=== PATIENT | male | born 1955 | race Caucasian/White ===

== ENCOUNTER 2018-08-14 09:45 | Inpatient (IN) | payer OTHER, MEDICAID ==
[2018-08-14] VITALS (15 sets, daily range): BP systolic 106–133; BP diastolic 69–91
[~2018-08-14] VITALS: Ht 160 cm; Wt 84.4 kg
[~2018-08-14 09:45] MED LIST: COR3 PO; LIBRIUM PO
[2018-08-14] MEDS ORDERED: LEVOFLOXACIN 750MG PREMIX 150 ML IV ONE (10:00)
[2018-08-14 10:26] LABS: BG BASE EXCESS -10.7 mmol/L (-2.0-2.0); BG CARBOXYHEMOGLOBIN 0.4 % (0.5-1.5); BG DEOXYHEMOGLOBIN 1.2 % (0.0-5.0); BG FRACTION INSPIRED OXYGEN 100; BG HCO3 ACT 15.6 mmol/L (22.0-26.0); BG METHEMOGLOBIN 0.4 % (0.0-1.5); BG OXYGEN SATURATION 98.8 % (92.0-98.5); BG PCO2 36.3 mmHg (35.0-45.0); BG PH 7.252 (7.350-7.450); BG PO2 153.5 mmHg (75.0-100.0); BG SAMPLE SITE RIGHT RADIAL; BG TIDAL VOLUME(mL) 500 mL; BG TOTAL HEMOGLOBIN 9.7 g/dL (12.0-18.0); BG VENT MODE VENT - A/C; BG VENT RATE 18 set
[2018-08-14 10:38] LABS: BASOPHILS % 0.8 % (0.0-2.0); EOSINOPHILS % 0.3 % (0.0-5.0); HEMATOCRIT. 36.5 % (42.0-52.0); HEMOGLOBIN. 10.6 g/dL (14.0-18.0); LYMPHOCYTES % 11.5 % (20.0-50.0); MEAN CORPUSCULAR HEMOGLOBIN 29.8 pg (28.0-32.0); MEAN CORPUSCULAR VOLUME 102.8 fL (80.0-94.0); MEAN PLATELET VOLUME 9.2 fl (7.4-10.4); MONOCYTES % 5.8 % (2.0-8.0); NEUTROPHILS % 81.6 % (40.0-76.0); PLATELET 305 x1000/uL (130-400); RED BLOOD CELL COUNT 3.55 mill/uL (4.7-6.1); RED CELL DISTRIBUTION WIDTH 23.8 % (11.6-14.6)
[2018-08-14] MEDS ORDERED: FUROSEMIDE 100MG/10ML VIAL IVP ONE (10:45)
[2018-08-14 10:47] LABS: CHLORIDE 114 mEq/L (98-107); INR 1.4
[2018-08-14 11:00] LABS: PLATELET ESTIMATE NORMAL
[2018-08-14] MEDS ORDERED: VANCOMYCIN 1 G PREMIX 200 ML IV ONE (11:00)
[2018-08-14] MEDS ORDERED: PIPERACILLIN/TAZ 3.375G PREMIX 50 ML IV ONE (11:00)
[2018-08-14] MEDS ORDERED: CALCIUM CHLORIDE 1GM/10ML SYR IV ONE (11:15)
[2018-08-14] MEDS ORDERED: ALBUTEROL (0.083%) 2.5MG/3ML NEB HHN ONE (11:15)
[2018-08-14] MEDS ORDERED: SODIUM BICARBONATE 8.4% 1 MEQ/ML 50ML SYR IV ONE (11:15)
[2018-08-14] MEDS ORDERED: INSULIN REGULAR (HUMULIN R) 300UNITS/3ML IV ONE (11:15)
[2018-08-14] MEDS ORDERED: DEXTROSE 50% WATER 50ML SYRINGE IV ONE (11:15)
[2018-08-14 12:59] LABS: CLARITY URINE CLOUDY (CLEAR); COLOR URINE YELLOW (YELLOW); KETONES URINE NEGATIVE (NEGATIVE); LEUKOCYTE ESTERASE URINE NEGATIVE (NEGATIVE); NITRITE URINE NEGATIVE (NEGATIVE); OCCULT BLOOD URINE TRACE (NEGATIVE); PH URINE 6.5 (4.5-8.0); PROTEIN URINE NEGATIVE (NEGATIVE); SPECIFIC GRAVITY URINE 1.007 (1.005-1.030); UROBILINOGEN URINE 0.2 E.U./dL (0.2-1.0)
[2018-08-14] MEDS ORDERED: ALBUTEROL (0.5%) 2.5MG/0.5ML NEB HHN ONE (14:15)
[2018-08-14] MEDS ORDERED: ASPIRIN 600MG SUPP PR ONE (14:30)
[2018-08-14] MEDS ORDERED: IPRATROPIUM/ALBUTEROL 0.5-3(2.5)MG/3ML NEB HHN PRN (15:00)
[2018-08-14] MEDS ORDERED: SODIUM BICARBONATE 8.4% 1 MEQ/ML 50ML SYR IV NR (16:16)
[2018-08-14] MEDS: CEFEPIME 1,000 MG in DEXTROSE 5% WATER 50 ML IV SCH (18:06)
[2018-08-14] MEDS ORDERED: LORAZEPAM 2MG/ML CPJ IM PRN (18:30)
[2018-08-14] MEDS: METRONIDAZOLE 500 MG PREMIX 100 ML IV SCH (20:44)
[2018-08-14] MEDS: MORPHINE SULFATE 4 MG/ML CPJ (NOT FOR IM USE) IV PRN (20:45)
[2018-08-14] MEDS: IPRATROPIUM/ALBUTEROL 0.5-3(2.5)MG/3ML NEB HHN SCH (23:40)
[2018-08-14] MEDS: ACETYLCYSTEINE 100MG/ML 10% VIAL 4ML INH SCH (23:40)
[2018-08-15] VITALS (36 sets, daily range): BP systolic 108–197; BP diastolic 28–106
[2018-08-15] MEDS: IPRATROPIUM/ALBUTEROL 0.5-3(2.5)MG/3ML NEB HHN SCH ×6 (03:52→23:32)
[2018-08-15] MEDS: CEFEPIME 1,000 MG in DEXTROSE 5% WATER 50 ML IV SCH ×2 (05:22→20:07)
[2018-08-15] MEDS: METRONIDAZOLE 500 MG PREMIX 100 ML IV SCH ×3 (05:22→20:27)
[2018-08-15 08:10] LABS: BG BASE EXCESS -4.5 mmol/L (-2.0-2.0); BG CARBOXYHEMOGLOBIN 0.3 % (0.5-1.5); BG DEOXYHEMOGLOBIN 1.6 % (0.0-5.0); BG FRACTION INSPIRED OXYGEN 40; BG METHEMOGLOBIN 0.2 % (0.0-1.5); BG OXYGEN SATURATION 98.4 % (92.0-98.5); BG OXYHEMOGLOBIN 97.9 % (94.0-97.0); BG PH 7.476 (7.350-7.450); BG PO2 134.5 mmHg (75.0-100.0); BG SAMPLE SITE RIGHT RADIAL; BG TIDAL VOLUME(mL) 500 mL; BG TOTAL HEMOGLOBIN 9.2 g/dL (12.0-18.0); BG VENT MODE VENT - A/C; BG VENT RATE 18 set
[2018-08-15] MEDS: MORPHINE SULFATE 4 MG/ML CPJ (NOT FOR IM USE) IV PRN ×3 (08:38→20:06)
[2018-08-15] MEDS: ACETYLCYSTEINE 100MG/ML 10% VIAL 4ML INH SCH (08:52)
[2018-08-15] MEDS: LORAZEPAM 2MG/ML CPJ IV PRN ×2 (10:05→23:18)
[2018-08-15] MEDS: FUROSEMIDE 40MG/4ML VIAL IVP SCH ×2 (11:20→18:05)
[2018-08-15] MEDS: PANTOPRAZOLE SODIUM 40 MG/VIAL IV SCH (11:21)
[2018-08-15] MEDS ORDERED: QUETIAPINE FUMARATE 25MG TABLET GT SCH (21:00)
[2018-08-16] VITALS (38 sets, daily range): BP systolic 95–149; BP diastolic 26–117
[2018-08-16] MEDS: MORPHINE SULFATE 4 MG/ML CPJ (NOT FOR IM USE) IV PRN ×2 (01:52→12:56)
[2018-08-16] MEDS: IPRATROPIUM/ALBUTEROL 0.5-3(2.5)MG/3ML NEB HHN SCH ×6 (03:54→20:34)
[2018-08-16] MEDS: METRONIDAZOLE 500 MG PREMIX 100 ML IV SCH ×3 (05:05→20:01)
[2018-08-16] MEDS: LORAZEPAM 2MG/ML CPJ IV PRN ×3 (05:05→20:01)
[2018-08-16 05:55] LABS: HEMATOCRIT. 26.8 % (42.0-52.0); HEMOGLOBIN. 8.4 g/dL (14.0-18.0); MEAN CORPUSCULAR HEMOGLOBIN 30.2 pg (28.0-32.0); MEAN CORPUSCULAR VOLUME 96.7 fL (80.0-94.0); PLATELET 307 x1000/uL (130-400); RED BLOOD CELL COUNT 2.77 mill/uL (4.7-6.1); RED CELL DISTRIBUTION WIDTH 23.6 % (11.6-14.6)
[2018-08-16 06:03] LABS: CHLORIDE 112 mEq/L (98-107)
[2018-08-16 06:05] LABS: PHOSPHORUS 3.1 mg/dL (2.5-4.9)
[2018-08-16 09:16] LABS: BG BASE EXCESS -2.7 mmol/L (-2.0-2.0); BG CARBOXYHEMOGLOBIN 0.4 % (0.5-1.5); BG DEOXYHEMOGLOBIN 2.3 % (0.0-5.0); BG FRACTION INSPIRED OXYGEN 40; BG HCO3 ACT 20.6 mmol/L (22.0-26.0); BG METHEMOGLOBIN 0.4 % (0.0-1.5); BG OXYGEN SATURATION 97.7 % (92.0-98.5); BG OXYHEMOGLOBIN 96.9 % (94.0-97.0); BG PCO2 30.5 mmHg (35.0-45.0); BG PH 7.448 (7.350-7.450); BG PO2 104.1 mmHg (75.0-100.0); BG SAMPLE SITE RIGHT RADIAL; BG TIDAL VOLUME(mL) 500 mL; BG VENT MODE VENT - A/C; BG VENT RATE 18 set
[2018-08-16] MEDS: CEFEPIME 1,000 MG in DEXTROSE 5% WATER 50 ML IV SCH ×2 (09:26→20:02)
[2018-08-16] MEDS: PANTOPRAZOLE SODIUM 40 MG/VIAL IV SCH (09:26)
[2018-08-16] MEDS: FUROSEMIDE 40MG/4ML VIAL IVP SCH ×2 (09:27→17:24)
[2018-08-16 10:48] LABS: PLATELET ESTIMATE NORMAL
[2018-08-16] MEDS: RISPERIDONE 1MG TABLET NG SCH ×2 (11:22→20:01)
[2018-08-16] MEDS: ENOXAPARIN 40MG/0.4ML SYR SUBCUT SCH (14:30)
[2018-08-16 15:22] LABS: BG BASE EXCESS -5.4 mmol/L (-2.0-2.0); BG CARBOXYHEMOGLOBIN 0.4 % (0.5-1.5); BG FRACTION INSPIRED OXYGEN 35; BG HCO3 ACT 17.4 mmol/L (22.0-26.0); BG METHEMOGLOBIN 0.3 % (0.0-1.5); BG OXYHEMOGLOBIN 96.3 % (94.0-97.0); BG PCO2 25.3 mmHg (35.0-45.0); BG PH 7.456 (7.350-7.450); BG PO2 94.7 mmHg (75.0-100.0); BG SAMPLE SITE RIGHT RADIAL; BG TIDAL VOLUME(mL) 500 mL; BG TOTAL HEMOGLOBIN 9.5 g/dL (12.0-18.0); BG VENT MODE VENT - A/C; BG VENT RATE 16 set
[2018-08-16] MEDS: DIGOXIN 125MCG TABLET PO SCH (17:36)
[2018-08-17] VITALS (44 sets, daily range): BP systolic 86–157; BP diastolic 48–109
[2018-08-17] MEDS: IPRATROPIUM/ALBUTEROL 0.5-3(2.5)MG/3ML NEB HHN SCH ×5 (00:22→20:33)
[2018-08-17] MEDS: MORPHINE SULFATE 4 MG/ML CPJ (NOT FOR IM USE) IV PRN (03:31)
[2018-08-17] MEDS: METRONIDAZOLE 500 MG PREMIX 100 ML IV SCH (06:19)
[2018-08-17 06:30] LABS: BASOPHILS % 1.2 % (0.0-2.0); EOSINOPHILS % 1.1 % (0.0-5.0); HEMATOCRIT. 26.5 % (42.0-52.0); HEMOGLOBIN. 8.5 g/dL (14.0-18.0); LYMPHOCYTES % 7.3 % (20.0-50.0); MEAN CORPUSCULAR HEMOGLOBIN 30.5 pg (28.0-32.0); MEAN CORPUSCULAR VOLUME 95.6 fL (80.0-94.0); MEAN PLATELET VOLUME 8.8 fl (7.4-10.4); NEUTROPHILS % 82.4 % (40.0-76.0); PLATELET 342 x1000/uL (130-400); RED BLOOD CELL COUNT 2.77 mill/uL (4.7-6.1); RED CELL DISTRIBUTION WIDTH 22.9 % (11.6-14.6)
[2018-08-17 06:43] LABS: CHLORIDE 110 mEq/L (98-107)
[2018-08-17 06:45] LABS: PHOSPHORUS 2.8 mg/dL (2.5-4.9)
[2018-08-17] MEDS ORDERED: VANCOMYCIN 1500MG in DEXTROSE 5% WATER 250ML IV SCH (09:00)
[2018-08-17] MEDS ORDERED: PIPERACILLIN/TAZ 2.25G PREMIX 50 ML IV SCH (09:00)
[2018-08-17] MEDS: RISPERIDONE 1MG TABLET NG SCH (09:10)
[2018-08-17] MEDS: FUROSEMIDE 40MG/4ML VIAL IVP SCH ×2 (09:10→18:52)
[2018-08-17] MEDS: PANTOPRAZOLE SODIUM 40 MG/VIAL IV SCH (09:10)
[2018-08-17] MEDS: ENOXAPARIN 40MG/0.4ML SYR SUBCUT SCH (09:10)
[2018-08-17] MEDS ORDERED: HALOPERIDOL LACTATE 5MG/ML VIAL IM PRN (12:45)
[2018-08-17] MEDS: PIPERACILLIN/TAZ 3.375G PREMIX 50 ML IV SCH ×2 (18:52→20:49)
[2018-08-17] MEDS: DIGOXIN 125MCG TABLET PO SCH (18:52)
[2018-08-17] MEDS: VANCOMYCIN 1 G PREMIX 200 ML IV SCH (20:49)
[2018-08-17] MEDS: RISPERIDONE 1MG TABLET PO SCH (20:50)
[2018-08-18] VITALS (15 sets, daily range): BP systolic 111–160; BP diastolic 42–100
[2018-08-18] MEDS: LORAZEPAM 2MG/ML CPJ IV PRN ×4 (00:36→18:48)
[2018-08-18] MEDS: IPRATROPIUM/ALBUTEROL 0.5-3(2.5)MG/3ML NEB HHN SCH ×6 (00:37→20:08)
[2018-08-18] MEDS: MORPHINE SULFATE 4 MG/ML CPJ (NOT FOR IM USE) IV PRN ×2 (00:40→14:33)
[2018-08-18] MEDS: PIPERACILLIN/TAZ 3.375G PREMIX 50 ML IV SCH ×4 (03:26→22:02)
[2018-08-18] MEDS: PANTOPRAZOLE SODIUM 40 MG/VIAL IV SCH (08:37)
[2018-08-18] MEDS: FUROSEMIDE 40MG/4ML VIAL IVP SCH ×2 (08:37→16:44)
[2018-08-18] MEDS: ENOXAPARIN 40MG/0.4ML SYR SUBCUT SCH (08:38)
[2018-08-18] MEDS: RISPERIDONE 1MG TABLET PO SCH ×2 (08:38→21:40)
[2018-08-18] MEDS: VANCOMYCIN 1 G PREMIX 200 ML IV SCH ×2 (08:45→21:40)
[2018-08-18 09:13] LABS: BASOPHILS % 1.6 % (0.0-2.0); EOSINOPHILS % 2.4 % (0.0-5.0); HEMATOCRIT. 26.2 % (42.0-52.0); HEMOGLOBIN. 8.4 g/dL (14.0-18.0); LYMPHOCYTES % 7.4 % (20.0-50.0); MEAN CORPUSCULAR HEMOGLOBIN 30.3 pg (28.0-32.0); MEAN CORPUSCULAR VOLUME 94.2 fL (80.0-94.0); MEAN PLATELET VOLUME 9.2 fl (7.4-10.4); MONOCYTES % 9.1 % (2.0-8.0); NEUTROPHILS % 79.5 % (40.0-76.0); PLATELET 325 x1000/uL (130-400); RED BLOOD CELL COUNT 2.78 mill/uL (4.7-6.1); RED CELL DISTRIBUTION WIDTH 23.1 % (11.6-14.6)
[2018-08-18 09:47] LABS: CHLORIDE 110 mEq/L (98-107)
[2018-08-18 10:01] LABS: PHOSPHORUS 2.2 mg/dL (2.5-4.9)
[2018-08-18 16:16] LABS: BG BASE EXCESS 3.8 mmol/L (-2.0-2.0); BG CARBOXYHEMOGLOBIN 0.1 % (0.5-1.5); BG DEOXYHEMOGLOBIN 1.9 % (0.0-5.0); BG FRACTION INSPIRED OXYGEN 35; BG HCO3 ACT 26.6 mmol/L (22.0-26.0); BG METHEMOGLOBIN 0.4 % (0.0-1.5); BG OXYGEN SATURATION 98.1 % (92.0-98.5); BG OXYHEMOGLOBIN 97.6 % (94.0-97.0); BG PCO2 33.3 mmHg (35.0-45.0); BG PH 7.521 (7.350-7.450); BG PO2 116.3 mmHg (75.0-100.0); BG SAMPLE SITE RIGHT RADIAL; BG TIDAL VOLUME(mL) 500 mL; BG TOTAL HEMOGLOBIN 9.3 g/dL (12.0-18.0); BG VENT MODE VENT - A/C; BG VENT RATE 16 set
[2018-08-18] MEDS: DIGOXIN 125MCG TABLET PO SCH (17:26)
[2018-08-18] MEDS ORDERED: ACETAMINOPHEN 650MG/20.3ML UDC PO PRN (19:15)
[2018-08-18] MEDS ORDERED: ACETAMINOPHEN 650MG/20.3ML UDC GT PRN (19:30)
[2018-08-19] VITALS (12 sets, daily range): BP systolic 103–121; BP diastolic 61–78
[2018-08-19] MEDS: IPRATROPIUM/ALBUTEROL 0.5-3(2.5)MG/3ML NEB HHN SCH ×6 (00:19→22:05)
[2018-08-19] MEDS: MORPHINE SULFATE 4 MG/ML CPJ (NOT FOR IM USE) IV PRN (02:53)
[2018-08-19] MEDS: PIPERACILLIN/TAZ 3.375G PREMIX 50 ML IV SCH ×4 (04:00→21:58)
[2018-08-19 06:33] LABS: CHLORIDE 109 mEq/L (98-107)
[2018-08-19 06:39] LABS: PHOSPHORUS 1.9 mg/dL (2.5-4.9)
[2018-08-19 07:59] LABS: BASOPHILS % 1.4 % (0.0-2.0); EOSINOPHILS % 5.3 % (0.0-5.0); HEMATOCRIT. 24.8 % (42.0-52.0); HEMOGLOBIN. 8.1 g/dL (14.0-18.0); LYMPHOCYTES % 7.2 % (20.0-50.0); MEAN CORPUSCULAR HEMOGLOBIN 30.6 pg (28.0-32.0); MEAN CORPUSCULAR VOLUME 93.7 fL (80.0-94.0); MEAN PLATELET VOLUME 8.7 fl (7.4-10.4); MONOCYTES % 9.2 % (2.0-8.0); NEUTROPHILS % 76.9 % (40.0-76.0); PLATELET 310 x1000/uL (130-400); RED BLOOD CELL COUNT 2.65 mill/uL (4.7-6.1); RED CELL DISTRIBUTION WIDTH 23.5 % (11.6-14.6)
[2018-08-19] MEDS: VANCOMYCIN 1 G PREMIX 200 ML IV SCH (08:04)
[2018-08-19] MEDS ORDERED: DEXT 5% WATER 500 ML IV ONE (08:45)
[2018-08-19] MEDS: PANTOPRAZOLE SODIUM 40 MG/VIAL IV SCH (08:49)
[2018-08-19] MEDS: ENOXAPARIN 40MG/0.4ML SYR SUBCUT SCH (08:50)
[2018-08-19] MEDS: RISPERIDONE 1MG TABLET PO SCH ×2 (09:00→21:58)
[2018-08-19] MEDS: FUROSEMIDE 40MG/4ML VIAL IVP SCH ×2 (09:34→16:03)
[2018-08-19] MEDS ORDERED: POTASSIUM PHOS,M-BASIC-D-BASIC 20 MMOL in DEXT 5% WATER 243.3333 ML IV SCH (10:00)
[2018-08-19] MEDS ORDERED: LACTULOSE 20G/30ML UDC PO PRN (13:00)
[2018-08-19] MEDS ORDERED: BISACODYL 5MG TABLET PO PRN (13:00)
[2018-08-19] MEDS ORDERED: FUROSEMIDE 40MG/4ML VIAL IVP NR (13:00)
[2018-08-19] MEDS: LORAZEPAM 2MG/ML CPJ IV PRN ×2 (14:32→21:57)
[2018-08-19] MEDS: DOCUSATE SODIUM 100MG CAPSULE NG SCH (18:13)
[2018-08-19] MEDS: DIGOXIN 125MCG TABLET PO SCH (18:14)
[2018-08-19] MEDS ORDERED: MORPHINE SULFATE 4 MG/ML CPJ (NOT FOR IM USE) IV PRN (18:30)
[2018-08-20] VITALS (14 sets, daily range): BP systolic 105–122; BP diastolic 56–89
[2018-08-20] MEDS: IPRATROPIUM/ALBUTEROL 0.5-3(2.5)MG/3ML NEB HHN SCH ×4 (00:22→20:55)
[2018-08-20] MEDS: LORAZEPAM 2MG/ML CPJ IV PRN (02:08)
[2018-08-20] MEDS: PIPERACILLIN/TAZ 3.375G PREMIX 50 ML IV SCH ×4 (05:07→21:21)
[2018-08-20 06:11] LABS: EOSINOPHILS % 5.8 % (0.0-5.0); HEMOGLOBIN. 8.3 g/dL (14.0-18.0); LYMPHOCYTES % 7.3 % (20.0-50.0); MEAN CORPUSCULAR VOLUME 93.7 fL (80.0-94.0); MONOCYTES % 10.3 % (2.0-8.0); NEUTROPHILS % 75.6 % (40.0-76.0); PLATELET 334 x1000/uL (130-400); RED BLOOD CELL COUNT 2.67 mill/uL (4.7-6.1); RED CELL DISTRIBUTION WIDTH 24.1 % (11.6-14.6)
[2018-08-20 06:42] LABS: CHLORIDE 102 mEq/L (98-107)
[2018-08-20] MEDS: FAMOTIDINE 20MG TABLET PO SCH ×2 (08:29→21:21)
[2018-08-20] MEDS: RISPERIDONE 1MG TABLET PO SCH ×2 (08:29→21:21)
[2018-08-20] MEDS: FUROSEMIDE 40MG/4ML VIAL IVP SCH ×2 (08:29→16:23)
[2018-08-20] MEDS: ENOXAPARIN 40MG/0.4ML SYR SUBCUT SCH (08:30)
[2018-08-20] MEDS: DOCUSATE SODIUM 100MG CAPSULE NG SCH ×2 (08:31→16:20)
[2018-08-20] MEDS ORDERED: POTASSIUM PHOS,M-BASIC-D-BASIC 20 MMOL in DEXT 5% WATER 243.3333 ML IV SCH (10:00)
[2018-08-20] MEDS ORDERED: MAGNESIUM 4 G PREMIX 100 ML IV SCH (10:00)
[2018-08-20] MEDS: POTASSIUM CHLORIDE 20MEQ/PACKET GT SCH ×2 (10:29→12:36)
[2018-08-20] MEDS ORDERED: LORAZEPAM 2MG/ML CPJ IV PRN (12:45)
[2018-08-20 16:15] LABS: BASOPHILS % 1.5 % (0.0-2.0); EOSINOPHILS % 4.5 % (0.0-5.0); HEMATOCRIT. 28.7 % (42.0-52.0); HEMOGLOBIN. 9.3 g/dL (14.0-18.0); LYMPHOCYTES % 10.7 % (20.0-50.0); MEAN CORPUSCULAR HEMOGLOBIN 30.1 pg (28.0-32.0); MEAN CORPUSCULAR VOLUME 92.9 fL (80.0-94.0); MONOCYTES % 10.2 % (2.0-8.0); NEUTROPHILS % 73.1 % (40.0-76.0); PLATELET 372 x1000/uL (130-400); RED BLOOD CELL COUNT 3.09 mill/uL (4.7-6.1)
[2018-08-20 16:48] LABS: CHLORIDE 100 mEq/L (98-107)
[2018-08-20 16:51] LABS: PLATELET ESTIMATE NORMAL
[2018-08-20] MEDS: DIGOXIN 125MCG TABLET PO SCH (17:08)
[2018-08-20] MEDS ORDERED: VANCOMYCIN 750 MG PREMIX 150 ML IV SCH (20:00)
== END 2018-08-21 00:38 | DRG 720 ==
LOC: ER 09:45 → EDBEDREQTM 09:53 → EDBEDREQ 09:53 → EDBEDREQSVC 09:53 → EDBEDREQ 12:10 → MICUSO 14:05 → EDBEDREQ 14:12 → ENRESERV 15:36 → 5EST 08-18 02:00
PROVIDERS: ADMIT Internal Medicine; ATTEND Internal Medicine
PROC: 5A1955Z Respiratory Ventilation, Greater than 96 Consecutive Hours (ICD-10-PCS; principal; 2018-08-14)
DX: A41.9 Sepsis, unspecified organism (principal); J96.21 Acute and chronic respiratory failure with hypoxia; G93.1 Anoxic brain damage, not elsewhere classified; E43 Unspecified severe protein-calorie malnutrition; Z99.11 Dependence on respirator [ventilator] status; E87.4 Mixed disorder of acid-base balance; G93.41 Metabolic encephalopathy; Z93.0 Tracheostomy status; D68.59 Other primary thrombophilia; I50.43 Acute on chronic combined systolic (congestive) and diastolic (congestive) heart failure; N17.9 Acute kidney failure, unspecified; B95.7 Other staphylococcus as the cause of diseases classified elsewhere; D64.9 Anemia, unspecified; E11.9 Type 2 diabetes mellitus without complications; E27.9 Disorder of adrenal gland, unspecified; E78.00 Pure hypercholesterolemia, unspecified; E78.5 Hyperlipidemia, unspecified; E83.39 Other disorders of phosphorus metabolism; E87.0 Hyperosmolality and hypernatremia; E87.5 Hyperkalemia; E87.6 Hypokalemia; F10.10 Alcohol abuse, uncomplicated; F29 Unspecified psychosis not due to a substance or known physiological condition; H54.7 Unspecified visual loss; I11.0 Hypertensive heart disease with heart failure; I42.9 Cardiomyopathy, unspecified; I48.2 Chronic atrial fibrillation; K70.30 Alcoholic cirrhosis of liver without ascites; N13.8 Other obstructive and reflux uropathy; Z78.1 Physical restraint status; Z82.49 Family history of ischemic heart disease and other diseases of the circulatory system; Z68.32 Body mass index [BMI] 32.0-32.9, adult; Z86.74 Personal history of sudden cardiac arrest; Z86.79 Personal history of other diseases of the circulatory system; Z87.891 Personal history of nicotine dependence; Z79.899 Other long term (current) drug therapy
CPT/HCPCS: 36415; 36600; 71045; 80048; 80202; 82375; 82805; 82962; 83605; 83735; 83880; 84100; 84134; 84145; 84484; 93005; 94002; 94003; 94640; 96365; 96366; 96375; 99291; A6261; C9113; J0692; J1650; J1815; J1940; J1956; J2060; J2270; J2543; J3370; J3475; J3490; J7040; J7050; J7060; J7608; J7611; J7620; A4315